=== PATIENT | female | born 1960 | race Caucasian/White ===

== ENCOUNTER 2016-04-20 13:07 | Day surgery (SDC) | payer OTHER ==
[~2016-04-20] VITALS: Ht 175.3 cm
[~2016-04-20 13:07] MED LIST: ADVAIR 100-501 EACH IH; AMBIEN10 MG PO; ASA CHILDREN'S81 MG PO; CAL MAG ZINC +1 EACH PO; COZAAR100 MG PO; FELDENE20 MG PO; FLEXERIL-DPS10 MG PO; IRON SUPPLEMEN325 MG PO; LORTAB 5-325 M1 EACH PO; PROAIR HFA8.5 GM IH; SALONPAS PATCH1 EAC1 TP; VALIUM5 MG PO; VITAMIN D32000 UNIT PO; XANAX0.25 MG PO
== END 2016-04-20 16:40 | disposition home or self-care (01) ==
LOC: SSS 13:07
PROC: 3E0R3BZ Introduction of Anesthetic Agent into Spinal Canal, Percutaneous Approach (ICD-10-PCS; principal; 2016-04-20)
PROC: 3E0R33Z Introduction of Anti-inflammatory into Spinal Canal, Percutaneous Approach (ICD-10-PCS; principal; 2016-04-20)
DX: M51.17 Intervertebral disc disorders with radiculopathy, lumbosacral region (principal); M47.16 Other spondylosis with myelopathy, lumbar region; M51.37 Other intervertebral disc degeneration, lumbosacral region; Z88.0 Allergy status to penicillin; Z88.8 Allergy status to other drugs, medicaments and biological substances; Z79.82 Long term (current) use of aspirin; Z79.899 Other long term (current) drug therapy; Z79.891 Long term (current) use of opiate analgesic

== ENCOUNTER 2016-05-13 14:00 | Emergency (ER) | payer OTHER ==
--- NOTE | 2016-05-15 13:16 | ER ---
ADMIT: 05/13/2016 RM/LOC: ER [facility] MR#: [id number] [address] [address] [place] [address] Emergency Room Report SEX: F AGE: 55 : 1960 DATE: 05/13/2016 The patient is a 55-year-old female with past medical history of renal cancer, status post nephrectomy; hysterectomy; TIA; aneurysm and repair; hyperparathyroidism; status post Edinson-en-Y and L2-L5 fusion; who came to the ER with chief complaint of right lower quadrant and left lower quadrant, and periumbilical abdominal pain which has been there since the last night and it is waxing and waning. At this time, it became more persistent. Also, the patient complains of bilateral lower back pain. Pain was severe earlier today but at the moment, it is moderate, 5-10 in severity, and the patient denies any new numbness, tingling, or weakness. The patient had nausea without vomiting. The patient denies any diarrhea and states that she suffers of constipation. Her last bowel movement was small and was yesterday. The patient passed gas since yesterday. On physical examination, vitals are normal. The patient is afebrile. Head and neck; normal exam. There is no meningismus. Normal breath sounds bilaterally without any rhonchi or rales. Normal S1, S2 without any murmur or gallops. Abdomen has some mild tenderness in the periumbilical and suprapubic and right lower quadrant and left lower quadrant. There is no rebound or guarding. Pain was controlled. Nausea was controlled, the patient received IV fluids. Lab work was negative. Negative urine for infection. Lipase was 118. White BC was 8 with hemoglobin of 12. Creatinine was 1.7, glucose was 95 and sodium of 143 with potassium of 3.7. The patient still has mild residual pain. CT of the abdomen and pelvis without contrast, knowing the history of nephrectomy and creatinine of 1.7, was negative for any acute changes. The patient was re-examined, pain was completely addressed and resolved. The patient did not develop any new symptoms and abdomen exam is benign and soft. The patient is stable to be discharged home. Warren Ashby MD/ jamey JOB #: [id number] CC: Warren Ashby MD, Attending Physician
== END 2016-05-13 18:45 | disposition home or self-care (01) ==
LOC: ER 14:00
DX: K59.00 Constipation, unspecified (principal); E20.9 Hypoparathyroidism, unspecified; F41.9 Anxiety disorder, unspecified; Z90.710 Acquired absence of both cervix and uterus; Z88.0 Allergy status to penicillin; Z88.8 Allergy status to other drugs, medicaments and biological substances; Z79.899 Other long term (current) drug therapy